=== PATIENT | female | born 1965 | race Caucasian/White ===

== ENCOUNTER 2018-09-07 14:46 | Emergency (ER) | payer OTHER ==
[2018-09-07 14:55] VITALS: TEMP 98.1; BMI 27.4
--- NOTE | 2018-09-07 14:59 | PDOC ---
Rapid Medical Evaluation Medical Evaluation: I have performed a brief in-person evaluation of this patient. The patient presents with a chief complaint of: Accidentally drank 2 sips of Lysol (contained alkyl dimethyl benzy); occurred around 1:30-1:50 PM; tried to induce herself to vomit, but states not much came out; experiences some throat discomfort; patient had milk and water post incident Pertinent physical exam findings: In NAD; slight pharyngeal erythema, otherwise unremarkable I have ordered the following: spoke to poison controlRamonita, who already spoke to patient before and had advised her to come to ED due to throat irritation; per poison control, can consider GI consult if throat discomfort continues The patient will proceed to the ED for further evaluation. 09/07/18 14:48
--- NOTE | 2018-09-07 15:57 | PDOC ---
History of Present Illness - General Chief Complaint: Ingestion Stated Complaint: INDIGESTION Time Seen by Provider: 09/07/18 14:48 History Source: Patient Exam Limitations: Language Barrier - History of Present Illness Initial Comments: 09/07/18 15:53 53 yo F with no significant PMHx presents after accidental ingestion of Lysol. She states that she was helping her daughter clean her house and with the heat she was very thirsty and saw a bottle of Gatorade and proceeded to take two sips when she realized it was Lysol. She immediately tried to make herself vomit and then proceeded to call poison control. They instructed her to drink water and come to ER. In ER she says that she feels fine just a small tingling feeling in her throat. No nausea, vomiting or diarrhea. No trouble breathing. Denies CP,ABDI, SOB, abdominal pain, fever or chills. I spoke with [place] at [place] poison control who said that we should just encourage PO water intake and observe for few hours. If no respiratory compromise or nausea can be discharged home. Timing/Duration: 1-3 hours Severity: mild Associated Symptoms: reports: denies symptoms Past History - Travel Traveled outside of the country in the last 30 days: No Close contact w/someone who was outside of country & ill: No - Past Medical History Allergies/Adverse Reactions: Allergies Allergy/AdvReac Type Severity Reaction Status Date / Time No Known Allergies Allergy Verified 09/07/18 14:55 Home Medications: Ambulatory Orders Linaclotide [Linzess] 72 mcg PO PRN PRN 09/07/18 - Suicide/Smoking/Psychosocial Hx Smoking History: Never smoked Have you smoked in the past 12 months: No Information on smoking cessation initiated: No Hx Alcohol Use: No Drug/Substance Use Hx: No Review of Systems - Review of Systems Constitutional: No: Chills, Diaphoresis, Fever HEENTM: No: Recent change in vision Respiratory: No: Cough, Shortness of Breath, SOB with Exertion Cardiac (ROS): No: Chest Pain ABD/GI: No: Difficulty Swallowing : No: Dysuria, Flank Pain, Hematuria Musculoskeletal: No: Muscle Pain Neurological: No: Headache, Numbness *Physical Exam - Vital Signs Last Vital Signs Temp Pulse Resp BP Pulse Ox 98.1 F 72 18 139/84 97 09/07/18 14:50 09/07/18 14:50 09/07/18 14:50 09/07/18 14:50 09/07/18 14:50 - Physical Exam General Appearance: Yes: Appropriately Dressed. No: Apparent Distress HEENT: positive: JUSTIN, Normal Voice, Pharynx Normal Neck: positive: Normal Thyroid, Supple Respiratory/Chest: positive: Lungs Clear, Normal Breath Sounds. negative: Respiratory Distress, Accessory Muscle Use Cardiovascular: positive: Regular Rhythm, Regular Rate, S1, S2. negative: Edema , JVD, Murmur Gastrointestinal/Abdominal: positive: Normal Bowel Sounds, Flat, Soft. negative : Tender Neurologic: positive: statistics manager II-XII NML intact, Fully Oriented, Alert, Normal Mood/ Affect, Normal Response Medical Decision Making - Medical Decision Making 09/07/18 17:01 Patient has felt fine. No trouble swallowing, no shortness of breath. Has tolerated PO intake of water with no issues. -stable for discharge home. *DC/Admit/Observation/Transfer Diagnosis at time of Disposition: Accidental ingestion of caustic alkali Qualifiers: Encounter type: initial encounter Qualified Code(s): T54.3X1A - Toxic effect of corrosive alkalis and alkali-like substances, accidental (unintentional), initial encounter - Discharge Dispostion Disposition: HOME Condition at time of disposition: Stable Decision to Admit order: No - Referrals - Patient Instructions Printed Discharge Instructions: DI for Accidental Ingestion -- Adult Additional Instructions: Increase activity as tolerated. resume a regular diet. Please follow up with your primary in one week. If symptoms worsen, you have trouble breathing or swallowing please return to ER immediately. - Post Discharge Activity
[2018-09-07 17:12] VITALS: BP 132/79; PULSE 81
--- NOTE | 2018-09-07 19:34 | PDOC ---
Documentation entered by Heena Hernandez SCRIBE, acting as scribe for Liang Caceres MD. Liang Caceres MD: This documentation has been prepared by the Mary horta Daisy, SCRIBE, under my direction and personally reviewed by me in its entirety. I confirm that the documentation accurately reflects all work, treatment, procedures, and medical decision making performed by me. Attending Attestation - Resident Resident Name: Gianluca Tello - ED Attending Attestation I have performed the following: I have examined & evaluated the patient, The case was reviewed & discussed with the resident, I agree w/resident's findings & plan - HPI HPI: c 09/07/18 15:32 The patient is a 53YOF with no PMH who presents to the ER after accidentally ingesting Lysol at 1PM. She reports she was helping her daughter clean her house and accidentally took 2 sips of Lysol clean and fresh (active ingredients : alkyl, dimethyl, benzyl, ammonium chloride), which had been stored in a Gatorade bottle. She is notes her throat had a tingling sensation, which has resolved on its own. Patient was evaluated at an urgent care and told to come to the ED to be observed. Denies any difficulty breathing. Patient is speaking in full sentences here in the ER. She is currently asymptomatic. Allergies: NKDA - Physicial Exam PE: 09/07/18 17:03 GENERAL: The patient is awake, alert, and fully oriented, Nontoxic - in no acute distress. HEAD: Normocephalic, atraumatic. ENT: Normal voice, Moist mucous membranes, posterior pharynx clear NECK: Normal range of motion, supple LUNGS: Breath sounds equal, clear to auscultation bilaterally. No wheezes, no rhonchi, no rales. HEART: Regular rate and rhythm, ABDOMEN: Soft, nontender, PSYCH: Normal mood, normal affect. SKIN: Warm, Dry, normal turgor, - Medical Decision Making 09/07/18 15:41 unintentional ingestion of lysol - originally had tingling in the throat but has since resolved. The patient denies any sob, difficulty swallowing. no other complaints discussed with poisons - will monitor and observe for 2-3 hrs if asypmtmoatic will dc with pmd fu 09/07/18 17:04 pt doing well - tolerated oral intake currently astympatmic requesting to go home will dc with pmd fu return precautions were discussed
== END 2018-09-07 17:12 | disposition home or self-care (01) ==
LOC: JER 14:46
DX: T54.1X1A Toxic effect of other corrosive organic compounds, accidental (unintentional), initial encounter (principal); J39.2 Other diseases of pharynx; Y92.018 Other place in single-family (private) house as the place of occurrence of the external cause
CPT/HCPCS: 99282-25

== ENCOUNTER 2019-11-28 04:48 | Day surgery (SDC) | payer OTHER ==
[2019-11-26 10:16] VITALS: BMI 27.4
[~2019-11-28 04:48] MED LIST: BUPIVACAINE HCL/PF 0.5% (5 MG/ML) 30 ML VIAL IJ ONE; LIDOCAINE HCL 1%, 10 MG/ML (20ML VIAL) ID ONE
--- NOTE | 2019-11-28 08:00 | HP ---
Satellite [facility] - Chief Complaint Chief Complaint: left foot mass - Past Medical History Allergies/Adverse Reactions: Allergies Allergy/AdvReac Type Severity Reaction Status Date / Time No Known Allergies Allergy Verified 11/26/19 10:18 ...LMP Comment: 2yrs ago - Current Medications Current Medications: Home Medications Medication Instructions Recorded Linaclotide [Linzess] 72 mcg PO PRN PRN 09/07/18 Satellite Physical Exam - Physical Examination Vital Signs: Vital Signs Period Temp Pulse Resp BP Sys/Freeman Pulse Ox Last 24 Hr 97.1 F 60 20 137/87 99-99 General Appearance: Well Nourished, Well Developed, Alert & Oriented x3 ENT: Clear Lung: Normal air movement Extremities: Other (left foot- + mass, + ttp, full rom, nvi) Neurological: Intact, Alert, Oriented Satellite Impression/Plan - Impression/Plan Impression: left foot ganglion cyst Operative Procedure: left foot ganglion cyst excision Date to be Performed: 11/28/19
[2019-11-28] MEDS ORDERED: MIDAZOLAM HCL 2 MG/2 ML SINGLE DOSE VIAL ONE ×2 (08:07)
[2019-11-28] MEDS ORDERED: PROPOFOL 20 ML ONE (08:30)
[2019-11-28] MEDS ORDERED: ceFAZolin SODIUM 1 GM VIAL IVPB ONE (08:30)
[2019-11-28] MEDS ORDERED: BUPIVACAINE HCL/PF 0.5% (5 MG/ML) 30 ML VIAL IJ ONE ×2 (08:45)
[2019-11-28] MEDS ORDERED: LIDOCAINE HCL 1%, 10 MG/ML (20ML VIAL) ID ONE ×2 (08:45)
--- NOTE | 2019-11-28 09:18 | OP ---
Operative Note - Note: Operative Date: 11/28/19 Pre-Operative Diagnosis: left foot mass Operation: excision mass left foot Post-Operative Diagnosis: Same as Pre-op Surgeon: Oniel Latif Anesthesiologist/SUGAR GRINDER: Brennen Aiken Anesthesia: Local, MAC Specimens Removed: mass left foot, likely ganglion cyst Estimated Blood Loss (mls): 0 Drains, Volume Out (mls): 0 Blood Volume Replaced (mls): 0 Fluid Volume Replaced (mls): 500 Operative Report Dictated: Yes
[2019-11-28] MEDS ORDERED: PROMETHAZINE HCL 25 MG/1 ML VIAL IVPUSH PRN (09:20)
[2019-11-28] MEDS ORDERED: oxyCODONE HCL 5 MG TABLET PO PRN (09:20)
[2019-11-28] MEDS ORDERED: ONDANSETRON 4 MG/2 ML VIAL IVPUSH PRN (09:20)
[2019-11-28] MEDS ORDERED: ACETAMINOPHEN 325 MG TABLET (FP) ONE (11:01)
[2019-11-28] MEDS ORDERED: oxyCODONE HCL 5 MG TABLET ONE (11:52)
--- NOTE | 2019-11-28 12:03 | OP ---
DATE OF OPERATION: 11/28/2019 PREOPERATIVE DIAGNOSIS: Left foot mass, likely ganglion cyst. POSTOPERATIVE DIAGNOSIS: Left foot mass, likely ganglion cyst. PROCEDURE: Excision, left foot mass/ganglion cyst. SURGEON: Oniel Smith MD PATIENT ACCOUNT SPECIALIST: None. ANESTHESIOLOGIST: Brennen Aiken MD ANESTHESIA: MAC anesthesia, local injection of 12 mL of 0.5% Marcaine/1% lidocaine mix. DRAINS: None. COMPLICATIONS: None. SPECIMEN: Mass, likely ganglion cyst, left foot. BLOOD LOSS: None. BLOOD GIVEN: None. FLUID REPLACEMENT: Plasma-Lyte, 500 mL. INDICATION: This patient is a 54-year-old female with a preoperative diagnosis of a large mass on the dorsal aspect of her left foot, consistent with a likely dorsal ganglion cyst. After understanding the potential risks, complications, alternatives and benefits of surgery versus nonsurgical treatment, the patient elected to undergo this procedure. DESCRIPTION OF PROCEDURE: The patient was brought to the operating room. Peripheral IV placed. IV sedation given. IV Ancef 2 g were given. The left lower extremity was prepped and draped in a sterile fashion. A tourniquet was placed around the left upper calf. The left lower extremity was elevated, exsanguinated with an Esmarch bandage and tourniquet inflated to 250 mmHg. A longitudinal incision was marked out over the roughly golf ball-sized mass on the dorsal aspect of the left foot. Mix of 0.5% Marcaine/1% lidocaine, 12 mL, was injected in and around the surgical incision. The No. 15 scalpel blade was utilized to cut down through the skin. Subcutaneous hemostasis was achieved with a bipolar cautery. The superficial neurovascular structures were identified and retracted gently. A large mass was identified typical for a ganglion cyst. At one point it popped during the case and classic ganglion cyst-like fluid was expressed. An Allis clamp was placed on the dorsal aspect of the ganglion cyst. It was retracted under tension. A blunt-tipped curved Littler scissors were utilized to do a circumferential dissection. Its stalk was identified, decapitated at its base and passed off the field as specimen. The area was copiously irrigated and washed out. I did not see or feel any other abnormal tissue. I cauterized the base of the stalk where it went into the dorsal midfoot joint. The area was copiously irrigated and washed out again. No other abnormal tissue was identified and closure done. Closure was done with 4-0 undyed Vicryl in the deep dermal layer and final skin reapproximation was done with a running subcuticular 4-0 Biosyn stitch. The area was then washed and dried and covered with Steri-Strips, 4 x 4 gauze, Webril, Coban. Tourniquet was taken down after a total tourniquet time of 20 minutes. There were no complications during the case. The patient tolerated the procedure well and was brought to the ambulatory recovery room in stable condition. ONIEL SMITH M.D. [id number]
[2019-11-28 12:43] VITALS: BP 139/66; PULSE 68; TEMP 97.5
--- NOTE | 2019-11-29 17:53 | PATH ---
Surgical Pathology Report Patient Name: DILIA FRANKLIN [facility]. Rec. #: [id number] /Age/Gender: 1965 (Age: 54) / F Account: [id number] Location: [facility] Taken: 11/28/2019 Received: 11/28/2019 Reported: 11/29/2019 Physicians: Oniel Latif M.D. Specimen(s) Received LEFT FOOT MASS, GANGLION CYST Clinical History Left foot dorsal ganglion cyst Final Diagnosis LEFT FOOT MASS, GANGLION CYST, EXCISION: CONSISTENT WITH GANGLION CYST. Electronically Signed Luci Dee M.D. Gross Description Received in formalin labeled "left foot mass ganglion cyst," is a 1.8 x 1.1 x 0.5 cm masterson cystic structure. The specimen is serially sectioned and entirely submitted in one cassette. /11/28/[facility]
== END 2019-11-28 12:20 | disposition home or self-care (01) ==
LOC: JASU-SURG 04:48
PROVIDERS: ATTEND Orthopaedic Surgery
PROC: 0LBW0ZZ Excision of Left Foot Tendon, Open Approach (ICD-10-PCS; principal; 2019-11-28 08:00)
DX: M67.472 Ganglion, left ankle and foot (principal)
CPT/HCPCS: 81025; 88304-TC; 94760